=== PATIENT | male | born 1960 | race Caucasian/White ===

== ENCOUNTER 2016-09-02 09:29 | Day surgery (SDC) | payer BC, OTHER ==
[2016-09-02] MEDS ORDERED: Lactated Ringers 1,000 ML IV SCH (09:30)
[2016-09-02] MEDS ORDERED: Sodium Chloride 0.9% 10 ML Syringe FLUSH PRN (09:30)
--- NOTE | 2016-09-02 11:08 | PCM.PN ---
- General Info Date of Service: 09/02/16 - Review of Systems Systems Review Comment:: 56-year-old male here for colonoscopy. Screening exam. He states his last colonoscopy was approximately 5 years ago. He denies any recent change in bowel habits. He also denies any bleeding from the rectum. I discussed the proposed colonoscopy with the patient. He understands indications options and risks. He agrees to proceed. - Patient Data Vitals - most recent: Last Vital Signs Temp 97.7 F 09/02/16 09:56 Pulse 67 09/02/16 09:56 Resp 20 09/02/16 09:56 BP 126/77 09/02/16 09:56 Pulse Ox 94 L 09/02/16 09:56 Weight - most recent: 99.972 kg Med Orders - Current: Current Medications Lactated Ringer's (Ringers, Lactated) 1,000 mls @ 70 mls/hr IV ASDIRECTED EBONY Last Admin: 09/02/16 10:13 Dose: 70 mls/hr Sodium Chloride (Saline Flush) 10 ml FLUSH ASDIRECTED PRN PRN Reason: Keep Vein Open - Problem List Review Problem List Initiated/Reviewed/Updated: Yes - My Orders Last 24 Hours: My Active Orders 09/02/16 09:30 Patient Status [ADT] Routine Peripheral IV Care [RC] . DIRECTED Verify Patient Consent Obtain [RC] ASDIRECTED Lactated Ringers [Ringers, Lactated] 1,000 ml IV ASDIRECTED Sodium Chloride 0.9% [Saline Flush] 10 ml FLUSH ASDIRECTED PRN Peripheral IV Insertion Adult [OM.PC] Routine - Assessment Assessment:: Colon Cancer Screening - Plan Plan:: Colonoscopy
[2016-09-02] MEDS ORDERED: Midazolam 1 MG/ML 2 ML SDV ONE ×2 (11:14)
[2016-09-02] MEDS ORDERED: Propofol 200 MG/20 ML SDV ONE ×2 (11:14)
--- NOTE | 2016-09-02 11:58 | PCM.OPNOTE ---
- General Post-Op/Procedure Note Date of Surgery/Procedure: 09/02/16 Operative Procedure(s): Colonoscopy with polypectomy Findings: Small transverse colon polyp Pre Op Diagnosis: Colon cancer screening Post-Op Diagnosis: Colon polyp Anesthesia Technique: MAC Primary Surgeon: Caden Guadarrama Pathology: Transverse colon polyp Output, Urine Amount: 0 EBL in mLs: 0 Complications: None Condition: Good Free Text/Narrative:: Intake & Output 09/01/16 09/02/16 09/02/16 22:59 06:59 14:59 Intake Total 900 Balance 900
--- NOTE | 2016-09-02 12:37 | OR ---
Date of Procedure: 09/02/2016 PREOPERATIVE DIAGNOSIS: Colon cancer screening. POSTOPERATIVE DIAGNOSIS: Transverse colon polyp. OPERATION PERFORMED: Colonoscopy with polypectomy. INDICATIONS FOR SURGERY: This 56-year-old male is referred for screening colonoscopy. He has not noted any recent rectal bleeding. FINDINGS: A single small polyp was identified in the mid transverse colon. This is estimated at 5 mm in size and is sessile in configuration. The remainder of the colon appears normal. PROCEDURE: The patient was taken to the operating room. He was given intravenous sedation, and with him in the left lateral decubitus position, digital rectal exam was performed showing no rectal masses. The Olympus colonoscope was inserted into the rectum. Retroflexed examination of the rectal canal is performed. The scope was then carefully advanced under direct visualization through the entire length of the colon until the cecum is reached. Cecal acquisition is confirmed by noting the normal internal cecal anatomy and identifying the light to transilluminate the abdominal wall to the right lower quadrant. After examining the cecum, the scope was slowly withdrawn sequentially re-examining the colonic segments. In the mid transverse colon, the above-described polyp was identified. It was removed with a cautery snare and retrieved into a polyp trap. The scope was then further withdrawn and after the colon and rectum had been completely examined and with no sign of any complicating process, the scope was removed and the patient was taken from the operating room in satisfactory condition. ESTIMATED BLOOD LOSS: Zero. COMPLICATIONS: None. PROGNOSIS: Good. LUKE Guadarrama MD /[id number]
[2016-09-02 15:44] VITALS: BP 111/73
== END 2016-09-02 13:05 | disposition home or self-care (01) ==
LOC: LL.SDS 09:29
PROVIDERS: ATTEND Surgery
DX: Z12.11 Encounter for screening for malignant neoplasm of colon (principal); D12.3 Benign neoplasm of transverse colon; J44.9 Chronic obstructive pulmonary disease, unspecified; E78.5 Hyperlipidemia, unspecified; E03.9 Hypothyroidism, unspecified; F32.9 Major depressive disorder, single episode, unspecified; Z79.82 Long term (current) use of aspirin; Z79.899 Other long term (current) drug therapy
CPT/HCPCS: 00810; 45385; J2250; J2704; J7050; J7120